=== PATIENT | male | born 1940 | race Caucasian/White ===

== ENCOUNTER 2016-12-31 07:03 | Emergency (ER) | payer OTHER ==
[~2016-12-31] VITALS: Ht 177.8 cm; Wt 77.1 kg
[2016-12-31 07:29] VITALS: BP 159/71
== END 2016-12-31 07:54 | disposition home or self-care (01) ==
LOC: ER 07:03 → EDSEX 07:03 → ER 07:54
DX: I10 Essential (primary) hypertension (principal); E78.5 Hyperlipidemia, unspecified; Z76.0 Encounter for issue of repeat prescription; Z95.2 Presence of prosthetic heart valve